=== PATIENT | male | born 1945 | race Caucasian/White ===

== ENCOUNTER 2019-03-03 08:34 | Day surgery (SDC) | payer OTHER ==
[2019-03-03] MEDS ORDERED: Ringers Lactate 1,000 ML IV ONE ×2 (09:00→11:07)
[2019-03-03] MEDS: OXYMETAZOLINE HCL 0.05% 15ML NAS ONE ×4 (09:13→10:40)
--- OUTSIDE RECORDS SUMMARY | 2019-03-03 09:52 | XMS REPORT ---
:1945 Author Organization [facility] Address [address] [place] [address] Dr. Coy [address] [place] [id number] Care Team Providers Name Role Phone Unavailable Unavailable Unavailable Problems This patient has no known problems. Allergies, Adverse Reactions, Alerts This patient has no known allergies or adverse reactions. Medications This patient has no known medications.
[2019-03-03] MEDS ORDERED: DEXAMETHASONE 10 MG/ML VIAL ONE (09:57)
[2019-03-03] MEDS ORDERED: LIDOCAINE 2% MPF 5 ML VIAL ONE (09:57)
[2019-03-03] MEDS ORDERED: ROCURONIUM 50 MG/5 ML VIAL IV ONE (09:57)
[2019-03-03] MEDS ORDERED: MIDAZOLAM HCL 2 MG/2 ML INJ ONE (09:57)
[2019-03-03] MEDS ORDERED: FENTANYL CITR 100 MCG/2 ML ONE (09:57)
[2019-03-03] MEDS ORDERED: PROPOFOL 200 MG/20 ML VIAL IV ONE (09:57)
[2019-03-03] MEDS ORDERED: OXYMETAZOLINE HCL 0.05% 15ML NAS ONE (10:27)
[2019-03-03] MEDS ORDERED: LIDOCAINE 1% W/EPI 1:100,000 MDV 50 ML VIAL ONE (10:27)
[2019-03-03] MEDS ORDERED: NA CHLORIDE 0.9% 500 ML ONE (10:51)
--- NOTE | 2019-03-03 12:02 | P.BOP ---
Preoperative diagnosis: CRS, septal deviation Postoperative diagnosis: same Primary procedure: septoplasty Secondary procedure: NE with R max, anterior ethmoid, frontal and L lm Cab Driver: NONE,NONE Estimated blood loss: 100ml Specimen: sinonasal trimmings Findings: copious pus in R max, eth, frontal Anesthesia: General Complications: None Implants: Propel mini to R FR, contour to R max antrostomy Fluids & blood products: crystalloid 1L Transferred to: Recovery Room Condition: Good
[2019-03-03] MEDS ORDERED: TRAMADOL HCL 50 MG TAB ONE (14:09)
--- NOTE | 2019-03-04 00:53 | OP ---
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 The risks, benefits, and alternatives to the procedure were discussed with the patient who agreed to proceed. Description Of Procedure: The patient was brought to the operating room. He was placed under genera l anesthesia via oral endotracheal tube. The head of bed was turned 90 degrees. The nasal hairs wer e trimmed with scissors and the nasal cavity was packed with Afrin-soaked pledgets. The hearo.fma dpiece was attached to the forehead and the preoperative CT was used. A laser pointer was used to ca librate the navigation system and accuracy was confirmed by [id number] matching including the bas e of the columella, the glabella, and the bilateral and medial lateral canthi, and the registration a nd accuracy were felt to be very good. The 0-degree endoscope was used to perform a right nasal endo scopy. The right middle meatus was noted to be severely inflamed with copious purulent drainage. A culture was collected from this area and sent for routine culture studies. The middle meatus was pac ked with Afrin-soaked pledgets. After several minutes, these were removed and the backbiter was palp ated using the maxillary seeker. The uncinate process was then removed using the backbiter and 90-de gree Blakesley. The maxillary antrostomy was enlarged using a 90-degree Blakesley. The maxillary si nus was noted to be filled with copious purulent secretions and the mucosa was severely edematous and inflamed. A 30-degree endoscope was used for better visualization and a curved syringe was used to forcefully irrigate the purulent secretions until the sinus appeared clear. The 0-degree endoscope a long with the straight 45 and 90 degree Blakesleys were used to perform an anterior ethmoidectomy. T he mucosa was severely inflamed and the ethmoid cavity was packed with Afrin-soaked pledgets from mul tiple locations to apply pressure as well as vasoconstriction and to aid with hemostasis. The kenxus navigation system was used to confirm dissection to the basal lamella of the middle turbinate. Th e posterior ethmoid cells were clear on the preoperative CT scan. Therefore, no posterior ethmoidect madeline was performed. The navigation system was used to confirm dissection along the anterior skull bas e as well as the lamina papyracea. After adequate dissection of the ethmoids, the Entellus balloon w as used to help palpate within the frontal recess. Identification of the frontal recess was difficul t due to the degree of inflammation. The fiberoptic probe with the balloon device was used to identi fy the frontal recess and the frontal recess was dilated using the balloon. After dilation, the fron geovanni sinus was forcefully irrigated with multiple aliquots of sterile saline. Copious amounts of pus were noted to come from the frontal recess. A 90 degree Blakesley was then used to remove some bony partitions and inflamed mucosa from the frontal recess. The cavity was then packed with Afrin-soaked pledgets and attention was turned to the left side. The left lm bullosa was noted to be large a nd, given patient's complaint of bilateral nasal congestion and review of his initial presentation, d ecision was made to perform a lm resection. A sickle knife was used to incise along the head of the middle turbinate and endoscopic scissors were used to cut superiorly and inferiorly. A 45 degree Bennie-Cut Blakesley was used to dissect and divide the lm along its posterior attachment and the l ateral portion of the lm was removed. Afrin-soaked pledget was applied to the middle meatus and attention was turned back to the right side. The previously placed pledgets were removed and the sep geovanni spur was injected with local anesthetic. A sickle knife was used to incise along the edge of the spur and a Sanders elevator was used to elevate the mucosa and divide the bony tissue. A Bennie-Cut José Miguel kesley was then used to remove the bony spur and the mucosa was laid along the remaining bone. Due t o the degree of edema and swelling of the frontal recess and mucosa of the maxillary sinus, decision was made for placement of steroid-eluting stents to improve inflammation and reduce risk of stenosis. A PROPEL Mini steroid-eluting stent was placed under endoscopic guidance into the right frontal rec ess. A PROPEL Contour steroid-eluting stent was placed under endoscopic guidance into the right maxi llary antrostomy. Ethmoid cavity remained mildly oozy and a MeroGel dissolvable sinus dressing was a pplied to the ethmoid cavity. The area was observed and, after several minutes, hemostasis was confi rmed. The nasopharynx was thoroughly suctioned. The patient was returned to care of Anesthesia for awakening and extubation in the operating room, which proceeded without difficulty. Complications: None. Followup: Patient will follow up with Dr. Pritchard in 1 week for evaluation of healing and is instruc ale to use steroid irrigations 3-4 times daily. A prescription for doxycycline is given empirically and we will follow up with cultures when results become available. JOSHUA Voice ID: [id number] Report ID: [id number]
== END 2019-03-03 14:20 | disposition home or self-care (01) ==
LOC: OR 08:34
PROVIDERS: ATTEND Otolaryngology
PROC: 099X8ZZ Drainage of Left Sphenoid Sinus, Via Natural or Artificial Opening Endoscopic (ICD-10-PCS; 2019-03-03)
PROC: 099S8ZZ Drainage of Right Frontal Sinus, Via Natural or Artificial Opening Endoscopic (ICD-10-PCS; 2019-03-03)
PROC: 09TL8ZZ Resection of Nasal Turbinate, Via Natural or Artificial Opening Endoscopic (ICD-10-PCS; 2019-03-03)
PROC: 09H Ear, Nose, Sinus, Insertion (ICD-10-PCS; 2019-03-03)
PROC: 8E09XBZ Computer Assisted Procedure of Head and Neck Region (ICD-10-PCS; 2019-03-03)
PROC: 09TL8ZZ Resection of Nasal Turbinate, Via Natural or Artificial Opening Endoscopic (ICD-10-PCS; 2019-03-03)
PROC: 09SM4ZZ Reposition Nasal Septum, Percutaneous Endoscopic Approach (ICD-10-PCS; 2019-03-03)
PROC: 8E09XBZ Computer Assisted Procedure of Head and Neck Region (ICD-10-PCS; principal; 2019-03-03 10:15)
PROC: 099U8ZZ Drainage of Right Ethmoid Sinus, Via Natural or Artificial Opening Endoscopic (ICD-10-PCS; 2019-03-03 10:15)
DX: J34.2 Deviated nasal septum (principal); J34.89 Other specified disorders of nose and nasal sinuses; J32.1 Chronic frontal sinusitis; J32.2 Chronic ethmoidal sinusitis; J32.3 Chronic sphenoidal sinusitis; I10 Essential (primary) hypertension; I48.91 Unspecified atrial fibrillation; Z79.899 Other long term (current) drug therapy; Z87.891 Personal history of nicotine dependence; E66.9 Obesity, unspecified; Z68.34 Body mass index [BMI] 34.0-34.9, adult
CPT/HCPCS: 31276; 30520; 31254; 31256; 31287; 31240; 31299; 61782; 87070; 88304; 88311; J2704; J2250; J3010; J1100